=== PATIENT | male | born 1940 | race Hispanic/Latino ===

== ENCOUNTER → 2019-05-16 | Day surgery (SDC) | payer MEDICARE ==
[2019-05-10 16:07] LABS: BASOPHILS % 0.4 % (0.0-1.0); EOSINOPHILS # (AUTO) 0.1 (0.0-0.4); EOSINOPHILS % 1.2 % (0.0-6.0); HEMATOCRIT 46.3 % (38.2-49.6); HEMOGLOBIN 15.9 g/dL (14.0-18.0); LYMPHOCYTES # (AUTO) 1.2 (1.0-3.2); LYMPHOCYTES % 22.3 % (18.0-39.1); MEAN CORPUSCULAR HEMOGLOBIN 32.9 pg (28-32); MEAN CORPUSCULAR HGB CONC 34.3 g/dL (31-35); MEAN CORPUSCULAR VOLUME 95.9 fL (81-99); MONOCYTES # (AUTO) 0.5 (0.2-0.8); MONOCYTES % 9.6 % (4.4-11.3); NEUTROPHILS # (AUTO) 3.5 (2.1-6.9); NEUTROPHILS % 66.1 % (38.7-80.0); PLATELET COUNT 213 x10e3/uL (140-360); RED BLOOD COUNT 4.83 x10e6/uL (4.3-5.7); RED CELL DISTRIBUTION WIDTH 13.5 % (11.7-14.4)
[2019-05-10 16:16] LABS: ANION GAP 11.1 mmol/L (8-16); BLOOD UREA NITROGEN 13 mg/dL (7-26); BUN/CREATININE RATIO 15 (6-25); CALCIUM 10.3 mg/dL (8.4-10.2); CARBON DIOXIDE 29 mmol/L (22-29); CHLORIDE 103 mmol/L (98-107); CREATININE, SERUM 0.85 mg/dL (0.72-1.25); EST GLOMERULAR FILTRATION RATE > 60 ML/MIN (60-); GLUCOSE 93 mg/dL (74-118); POTASSIUM 4.1 mmol/L (3.5-5.1); SODIUM 139 mmol/L (136-145)
--- NOTE | 2019-05-10 17:06 | Diagnostic Imaging Report ---
Chest, PA and lateral. History: Preoperative evaluation for urologic procedure. Comparison: None available. Discussion: The cardiomediastinal silhouette and pulmonary vasculature are within normal limits. There is no focal consolidation, sizable pleural effusion, or pneumothorax. A large hiatal hernia is present. There are no acute osseous abnormalities. IMPRESSION: No acute cardiopulmonary abnormality. Large hiatal hernia Signed by: Ricky Trivedi MD on 05/10/2019 5:04 PM
[~2019-05-16] MED LIST: ALLOPURINOL300 MG PO; CEFTRIAXONE SOD 1 GM/NS 50 ML 50 ML IV ONE; CYCLOBENZAPRINE10 MG PO; DEXAMETHASONE SOD PHOS INJ 4 MG/ML VIAL ONE; FENTANYL CITRATE/PF 100MCG/2 ML INJ ONE; LIDOCAINE HCL 2% LOCAL INJ 5 ML SDV VIAL INJ ONE; LISINOPRIL-HCT1 EAC2 PO; ONDANSETRON HCL INJ 2MG/ML 2ML 2 MG/ML VIAL ONE; PANTOPRAZOLE SO40 MG PO; PROPOFOL IV EMULSION 10 MG/ML 20 ML VIAL ONE; SEVOFLURANE INHAL SOLN 250 ML PEN BTL ONE; TRAMADOL PO; VENTOLIN HFA18 GM INH
--- OUTSIDE RECORDS SUMMARY | 2019-05-16 05:42 | XMS REPORT ---
Author [facility] Unknown Phone Unavailable Care Team Providers Care Health Information Technician Name Role Phone Court DAVIS Unavailable Unavailable Problems This patient has no known problems. Allergies, Adverse Reactions, Alerts This patient has no known allergies or adverse reactions. Medications This patient has no known medications. Encounters Start Date/Time End Date/Time Encounter Type Admission Type Attending [facility] Care Facility Care Department Encounter ID 2019-04-08 09:05:00 2019-04-08 09:05:00 Outpatient [id number] 2019-04-07 14:50:00 2019-04-07 14:50:00 Outpatient [id number] 2018-11-23 09:05:00 2018-11-23 09:05:00 Outpatient [id number] 2018-11-16 00:17:00 2018-11-16 00:17:00 Emergency E [facility] [id number] Results Test Description Test Time Test Comments Text Results Atomic Results Result Comments CHEST 2 VIEWS 2019-05-10 17:03:00 [place] [address] Patient Name: SELINA MSILEY MR #: [id number] : 1940 Age/Sex: 78/M Req #: [id number] Adm Physician: Ordered by: JONELLE DAVIS MD Report #: [id number] Location: OR Room/Bed: Procedure: [id number] DX/CHEST 2 VIEWS Exam Date: Exam Time: REPORT STATUS: Signed Chest, PA and lateral. History: Preoperative evaluation for urologic p rocedure. Comparison: None available. Discussion: The cardiomediastinal silhouette and pulmonary vasculature are within normal limits. There is no focal consolidation, sizable pleural effusion, or pneumothorax. A large hiatal hernia is present. There are no acute osseous abnormalities. IMPRESSION: No acute cardiopulmonary abnormality. Large hiatal hernia Signed by: Ricky Trivedi MD on 05/10/2019 5:04 PM Dictated By: RICKY TRIVEDI MD 03 Transcribed By: ELIAS on 05/10/191703 COPY TO: JONELLE DAVIS MD
[2019-05-16 09:05] VITALS: BP 136/78
--- NOTE | 2019-05-16 14:49 | Operative Report ---
DATE OF PROCEDURE: 05/16/2019 SURGEON: Marito Gomez MD PREOPERATIVE DIAGNOSIS: Elevated PSA and abnormal JOVANNI. POSTOPERATIVE DIAGNOSIS: Elevated PSA and abnormal JOVANNI. OPERATIVE PROCEDURE: Transrectal ultrasound and biopsy of the prostate. ANESTHESIA: TIVA. ESTIMATED BLOOD LOSS: Minimal. INDICATIONS: Mr. Parrish Muller is an 78-year-old gentleman, who came to the office with a history of an elevated PSA to approximately 80. On rectal examination, had bilateral nodule prostate. He now presents for potential diagnosis and management of this problem. PROCEDURE IN DETAIL: The patient was brought to the operating room, placed in supine position. Administration of IV sedation was placed in the left lateral decubitus position and prepped in the usual fashion. Transrectal ultrasonography of the prostate was performed. The prostate measured 45 mL in total volume. There was a moderate postvoid residual noted in the bladder. The seminal vesicles were intact bilaterally. There was a large right hypoechoic area, which was appeared to be extending outside of the prostate. There was some transitional zone calcifications noted. A total of 12 biopsies were taken in the standard fashion. This was tolerated well by the patient with minimal bleeding noted afterwards. Pathology specimens were sent for microscopic analysis. Anesthesia was reversed. The patient was transferred to the postanesthesia care unit in good condition. Of note, the needle and instrument count were correct at the conclusion of the case. Marito Gomez MD HLW/MODL /[id number]
== END | disposition home or self-care (01) ==
LOC: OR 05:39
PROVIDERS: ATTEND Urology
DX: C61 Malignant neoplasm of prostate (principal); Z01.810 Encounter for preprocedural cardiovascular examination; Z01.812 Encounter for preprocedural laboratory examination; Z01.811 Encounter for preprocedural respiratory examination; K21.9 Gastro-esophageal reflux disease without esophagitis; K44.9 Diaphragmatic hernia without obstruction or gangrene; I10 Essential (primary) hypertension; J44.9 Chronic obstructive pulmonary disease, unspecified
CPT/HCPCS: 36415; 55700; 71046; 76998; 80048; 85025; 88305; 88342; 93005; J0696; J1100; J2001; J2405; J2704; J3010; 76872

== ENCOUNTER 2020-08-04 11:27 | Emergency (ER) | payer MEDICARE ==
[~2020-08-04] VITALS: Ht 177.8 cm; Wt 73.7 kg
[~2020-08-04 11:27] MED LIST changes: -GLYCOPYRROLATE INJ 0.2 MG/ML VIAL ONE; -POVIDONE IODINE 0.05% 0.05 % ML PO ONE; -PROPOFOL IV EMULSION 10 MG/ML 20 ML VIAL ONE
[2020-08-04 12:04] VITALS: BP 134/71
== END 2020-08-04 12:32 | disposition home or self-care (01) ==
LOC: ER 12:32
DX: R33.9 Retention of urine, unspecified (principal); I10 Essential (primary) hypertension; K21.9 Gastro-esophageal reflux disease without esophagitis; M10.9 Gout, unspecified
CPT/HCPCS: 99283

== ENCOUNTER 2020-08-04 14:30 | Emergency (ER) | payer MEDICARE ==
[~2020-08-04] VITALS: Ht 177.8 cm; Wt 73.5 kg
== END 2020-08-04 16:04 | disposition home or self-care (01) ==
LOC: ER 15:23
DX: R31.9 Hematuria, unspecified (principal); I10 Essential (primary) hypertension; K21.9 Gastro-esophageal reflux disease without esophagitis
CPT/HCPCS: 99282

== ENCOUNTER → 2020-08-04 | Day surgery (SDC) | payer MEDICARE ==
[2020-07-31 12:18] LABS: BASOPHILS % 0.7 % (0.0-1.0); EOSINOPHILS # (AUTO) 0.2 (0.0-0.4); EOSINOPHILS % 2.5 % (0.0-6.0); HEMATOCRIT 38.4 % (38.2-49.6); HEMOGLOBIN 12.6 g/dL (14.0-18.0); LYMPHOCYTES # (AUTO) 1.7 (1.0-3.2); MEAN CORPUSCULAR HEMOGLOBIN 32.8 pg (28-32); MEAN CORPUSCULAR HGB CONC 32.8 g/dL (31-35); MONOCYTES # (AUTO) 0.6 (0.2-0.8); MONOCYTES % 9.6 % (4.4-11.3); NEUTROPHILS # (AUTO) 3.4 (2.1-6.9); NEUTROPHILS % 57.7 % (38.7-80.0); PLATELET COUNT 202 x10e3/uL (140-360); RED BLOOD COUNT 3.84 x10e6/uL (4.3-5.7); RED CELL DISTRIBUTION WIDTH 14.3 % (11.7-14.4)
[~2020-08-04] MED LIST changes: +ALLEGRA ALLERGY60 MG PO; -CEFTRIAXONE SOD 1 GM/NS 50 ML 50 ML IV ONE; +COMBIVENT RESPIM4 GM NEB; -DEXAMETHASONE SOD PHOS INJ 4 MG/ML VIAL ONE; -FENTANYL CITRATE/PF 100MCG/2 ML INJ ONE; +FLOMAX0.4 MG PO; +FLONASE ALLERG9.9 ML INH; +GLYCOPYRROLATE INJ 0.2 MG/ML VIAL ONE; -LIDOCAINE HCL 2% LOCAL INJ 5 ML SDV VIAL INJ ONE; +LUPRON DEPOT7.5 MG SQ; +NETTLE LEAF10000 GM PO; -ONDANSETRON HCL INJ 2MG/ML 2ML 2 MG/ML VIAL ONE; +POVIDONE IODINE 0.05% 0.05 % ML PO ONE; -SEVOFLURANE INHAL SOLN 250 ML PEN BTL ONE; +ULTRACET TABLE1 EACH PO; +VITAMIN D3250 MCG PO
[2020-08-04 09:15] VITALS: BP 108/80
== END | disposition home or self-care (01) ==
LOC: OR 06:30
PROVIDERS: ATTEND Internal Medicine Gastroenterology
DX: D12.3 Benign neoplasm of transverse colon (principal); D12.5 Benign neoplasm of sigmoid colon; K29.50 Unspecified chronic gastritis without bleeding; B96.81 Helicobacter pylori [H. pylori] as the cause of diseases classified elsewhere; D64.9 Anemia, unspecified; Z87.891 Personal history of nicotine dependence; Z01.810 Encounter for preprocedural cardiovascular examination; Z01.812 Encounter for preprocedural laboratory examination; Z20.822 Contact with and (suspected) exposure to COVID-19; K44.9 Diaphragmatic hernia without obstruction or gangrene
CPT/HCPCS: 36415; 43239; 45385; 85025; 88305; 88312; 93005; J2704; U0002; 45378

== ENCOUNTER → 2021-09-22 | Day surgery (SDC) | payer MEDICARE ==
[2021-09-17 15:00] LABS: BASOPHILS % 0.2 % (0.0-1.0); EOSINOPHILS # (AUTO) 0.1 (0.0-0.4); EOSINOPHILS % 2.9 % (0.0-6.0); HEMATOCRIT 37.2 % (38.2-49.6); HEMOGLOBIN 12.3 g/dL (14.0-18.0); LYMPHOCYTES # (AUTO) 1.1 (1.0-3.2); LYMPHOCYTES % 22.5 % (18.0-39.1); MEAN CORPUSCULAR HEMOGLOBIN 33.3 pg (28-32); MEAN CORPUSCULAR HGB CONC 33.1 g/dL (31-35); MEAN CORPUSCULAR VOLUME 100.8 fL (81-99); MONOCYTES # (AUTO) 0.8 (0.2-0.8); MONOCYTES % 16.6 % (4.4-11.3); NEUTROPHILS # (AUTO) 2.8 (2.1-6.9); NEUTROPHILS % 57.4 % (38.7-80.0); PLATELET COUNT 215 x10e3/uL (140-360); RED BLOOD COUNT 3.69 x10e6/uL (4.3-5.7); RED CELL DISTRIBUTION WIDTH 14.5 % (11.7-14.4)
[2021-09-17 15:18] LABS: ANION GAP 12.6 mmol/L (8-16); CALCIUM 9.8 mg/dL (8.4-10.2); CREATININE, SERUM 0.79 mg/dL (0.72-1.25); POTASSIUM 4.6 mmol/L (3.5-5.1)
[~2021-09-22] MED LIST changes: +BUPIVACAINE 0.25% 30ML SDV ONE; +EPHEDRINE SULFATE INJ 50 MG/ML VIAL ONE; +GLYCOPYRROLATE INJ 0.2 MG/ML VIAL ONE; +HYDROCODONE/APAP 5MG-325MG TAB ONE; +KETOROLAC TROMETHAMINE 30 MG/ML VIAL ONE; +LIDOCAINE 1% W/EPINEPHRINE 20 ML VIAL ONE; +LIDOCAINE HCL 2% LOCAL INJ 5 ML SDV VIAL INJ ONE; +PHENYLEPHRINE HCL 1% 10 MG/ML VIAL ONE; +POVIDONE IODINE 0.05% 0.05 % ML PO ONE; +PROPOFOL IV EMULSION 10 MG/ML 20 ML VIAL ONE; +PROPOFOL IV EMULSION 50 ML IV ONE; +XTANDI80 MG PO
[2021-09-22 14:30] VITALS: BP 133/63
== END | disposition home or self-care (01) ==
LOC: OR 08:00
PROVIDERS: ATTEND Surgery
DX: K40.91 Unilateral inguinal hernia, without obstruction or gangrene, recurrent (principal); C61 Malignant neoplasm of prostate; I10 Essential (primary) hypertension; N40.0 Benign prostatic hyperplasia without lower urinary tract symptoms; J45.909 Unspecified asthma, uncomplicated; R00.1 Bradycardia, unspecified; I44.0 Atrioventricular block, first degree; M54.9 Dorsalgia, unspecified; H91.90 Unspecified hearing loss, unspecified ear; N20.0 Calculus of kidney; Z01.810 Encounter for preprocedural cardiovascular examination; Z01.812 Encounter for preprocedural laboratory examination; Z01.818 Encounter for other preprocedural examination; Z20.822 Contact with and (suspected) exposure to COVID-19; Z79.899 Other long term (current) drug therapy
CPT/HCPCS: 0223U; 36415; 49520; 71046; 80048; 85025; 88302; 93005; C1781; J0690; J1885; J2001; J2370; J2704 ×2